=== PATIENT | female | born 1970 | race Two or more races ===

== ENCOUNTER 2023-04-15 21:50 | Inpatient (IN) | payer SELFPAY ==
[~2023-04-15] VITALS: Ht 165.1 cm; Wt 83.8 kg
[2023-04-15 22:17] LABS: Urine Bacteria FEW /hpf (None Seen); Urine Blood 3+ /uL (Negative); Urine Clarity Clear (Clear); Urine Color Yellow (Yellow); Urine Hyaline Cast FEW /lpf (0 - 2); Urine Mucus FEW (None Seen); Urine Protein, UAD 1+ (Negative); Urine WBC 5 /hpf (0 - 5); Urine pH 5.5 (5.0-8.0)
[2023-04-15 23:14] LABS: Basophils # (auto) 0 10 ^3/uL (0-0.2); Basophils % (auto) 0.3 % (0.0-2.0); Eosinophils # (auto) 0 10 ^3/uL (0-0.8); Eosinophils % (auto) 0.1 % (0.0-7.0); Hematocrit 42.8 % (36.0-46.0); Hemoglobin 14.2 g/dL (12.2-16.2); Lymphocytes # (auto) 2.7 10 ^3/uL (0.4-5.4); Lymphocytes % (auto) 18.3 % (10.0-50.0); Mean Corpuscular Hemoglobin 30.4 pg (28.0-32.0); Mean Corpuscular Hgb Conc. 33.3 g/dL (32.0-36.0); Mean Corpuscular Volume 91.3 fL (80.0-100.0); Monocytes # (auto) 0.6 10 ^3/uL (0-1.3); Monocytes % (auto) 4.1 % (0.0-12.0); Neutrophils # (auto) 11.3 10 ^3/uL (1.6-8.6); Neutrophils % (auto) 77.2 % (37.0-80.0); Red Blood Cells 4.68 10^6/uL (4.0-5.20); Red Cell Distribution Width 12.5 % (11.8-14.3); White Blood Cell 14.7 10^3/uL (4.4-10.8)
[2023-04-15 23:32] LABS: Alanine Aminotransferase 13 U/L (7-40); Albumin 4.8 g/dL (3.2-4.8); Alkaline Phosphatase 113 U/L (46-116); Anion Gap 7.1 (5-15); Aspartate Aminotransferase 14 U/L (13-40); BUN/Creatinine Ratio 14.5 (10.0-20.0); Blood Urea Nitrogen 11 mg/dL (9-23); Calcium 9.8 mg/dL (8.7-10.4); Carbon Dioxide 25.9 mmol/L (20-30); Chloride 101 mmol/L (98-107); Glucose 104 mg/dL (74-106); Lipase 44 U/L (12-53); Potassium 4.1 mmol/L (3.5-5.1); Sodium 134 mmol/L (136-145)
[2023-04-15 23:33] LABS: Bilirubin, Total 1.1 mg/dL (0.2-1.0); Total Protein 7.9 g/dL (5.7-8.2)
[2023-04-16] MEDS ORDERED: cefTRIAXone SOD 1,000 MG VL IM ONE (03:45)
[2023-04-16] MEDS ORDERED: LIDOCAINE 1% HCL (LOCAL ANESTH.) INJ 20ML MDV ONE (04:16)
[2023-04-16] MEDS ORDERED: MORPHINE SULFATE 4 MG/ML SYR/VIAL IV ONE (04:45)
[2023-04-16] MEDS ORDERED: SODIUM CHLORIDE 0.9% 1,000 ML IVB ONE (04:45)
[2023-04-16] MEDS ORDERED: ONDANSETRON HCL 4 MG/2 ML VIAL IV ONE (04:45)
[2023-04-16] MEDS ORDERED: PIPERACILLIN-TAZOB 3.375GM 100 ML IV ONE (05:00)
[2023-04-16 06:59] LABS: INR 1.11 (0.9-1.15); Partial Thromboplastin Time 31.8 SEC (24.5-34.5); Prothrombin Time 11.6 sec (9.3-11.8)
[2023-04-16] MEDS ORDERED: SODIUM CHLORIDE 0.9% 1,000 ML IV SCH (07:15)
[2023-04-16] MEDS ORDERED: MORPHINE SULFATE INJ 2 MG/ml SYRG IV PRN ×2 (07:15→10:45)
[2023-04-16] MEDS ORDERED: ONDANSETRON HCL 4 MG/2 ML VIAL IV PRN ×2 (07:15→17:00)
[2023-04-16] MEDS: cefTRIAXone 1GM/50ML D5W 50 ML IV SCH (09:00)
[2023-04-16] MEDS: PANTOPRAZOLE 40 MG/10 ML VIAL INJ IV SCH (10:46)
[2023-04-16] MEDS: SODIUM CHLORIDE 0.9% 1,000 ML IV SCH ×2 (10:46→18:40)
[2023-04-16 10:58] VITALS: PULSE 77; RESP 19; O2SAT 93
[2023-04-16 13:49] VITALS: BP 120/75; PULSE 91; RESP 20; TEMP 98.1; O2SAT 98
[2023-04-16 13:50] VITALS: BP 120/75; PULSE 91; RESP 20; TEMP 98.1; O2SAT 98
[2023-04-16] MEDS: metroNIDAZOLE 500MG/100ML 100 ML IV SCH ×2 (14:11→21:41)
[2023-04-16] MEDS ORDERED: ROCURONIUM 10MG/ML 10ML VIAL IV ONE (15:25)
[2023-04-16] MEDS ORDERED: LIDOCAINE 2% JELLY 11ml (GLYDO) ONE (15:25)
[2023-04-16] MEDS ORDERED: DexAMETHasone SOD PHOS 10MG/1ML VIAL INJ ONE (15:29)
[2023-04-16] MEDS ORDERED: PROPOFOL 10 MG/ML 20 ML IV ONE (15:29)
[2023-04-16] MEDS ORDERED: GLYCOPYRROLATE 0.2 MG/ML 1ML VIAL ONE (15:29)
[2023-04-16] MEDS ORDERED: ONDANSETRON HCL 4 MG/2 ML VIAL ONE (15:29)
[2023-04-16] MEDS ORDERED: KETOROLAC TROMETH 30 MG/ML 1ML VIAL ONE (15:29)
[2023-04-16] MEDS ORDERED: CELECOXIB 100 MG CAP PO ONE (15:30)
[2023-04-16] MEDS ORDERED: ACETAMINOPHEN IV 1000 MG/100ML (10MG/ML) IV ONE (15:30)
[2023-04-16] MEDS ORDERED: GABAPENTIN 400 MG CAP PO ONE (15:30)
[2023-04-16] MEDS ORDERED: fentaNYL CITRATE 100 MCG/2 ML VL ONE (15:33)
[2023-04-16] MEDS ORDERED: SUGAMMADEX 200mg/2ml Vial (100MG/ML) IV ONE (15:33)
[2023-04-16] MEDS ORDERED: LIDOCAINE W/ EPINEPHRINE 1% 20ML VIAL ONE (15:37)
[2023-04-16] MEDS ORDERED: BUPIVACAINE 0.25% INJ 50ML VIAL ONE (15:38)
[2023-04-16] MEDS ORDERED: CELECOXIB 100 MG CAP ONE (15:47)
[2023-04-16] MEDS ORDERED: ACETAMINOPHEN IV 100 ML IV ONE (15:47)
[2023-04-16] MEDS ORDERED: GABAPENTIN 400 MG CAP ONE (15:47)
[2023-04-16 16:53] VITALS: O2SAT 97
[2023-04-16] MEDS ORDERED: fentaNYL CITRATE 100 MCG/2 ML VL IV PRN (17:00)
[2023-04-16] MEDS ORDERED: hydrALAZINE HCL 20 MG/ML VL IV PRN (17:00)
[2023-04-16] MEDS ORDERED: FLUMAZENIL 0.1 MG/ML INJ 10ML MDV IV PRN (17:00)
[2023-04-16] MEDS ORDERED: ePHEDrine SULFATE 50 MG/ML AMP IV PRN (17:00)
[2023-04-16] MEDS ORDERED: HYDROmorphone HCL 2 MG/ML VL/or syr IV PRN (17:00)
[2023-04-16] MEDS ORDERED: NALOXONE HCL 0.4 MG/ML VIAL IV PRN (17:00)
[2023-04-16] MEDS ORDERED: LABETALOL HCL 5 MG/ML 4ML SYRINGE IV PRN (17:00)
[2023-04-16] MEDS: oxyCODONE HCL 5MG TAB PO PRN ×2 (17:28→21:41)
[2023-04-16 20:00] VITALS: PULSE 75; RESP 18; O2SAT 95
[2023-04-16 22:00] VITALS: BP 102/59; PULSE 80; RESP 16; TEMP 98.9; O2SAT 92
[2023-04-17] MEDS: SODIUM CHLORIDE 0.9% 1,000 ML IV SCH ×2 (04:52→10:36)
[2023-04-17 05:00] VITALS: BP 105/56; PULSE 74; RESP 18; TEMP 98.1; O2SAT 95
[2023-04-17] MEDS: metroNIDAZOLE 500MG/100ML 100 ML IV SCH (06:28)
[2023-04-17 07:02] LABS: Basophils # (auto) 0 10 ^3/uL (0-0.2); Basophils % (auto) 0.1 % (0.0-2.0); Eosinophils # (auto) 0 10 ^3/uL (0-0.8); Hematocrit 28.1 % (36.0-46.0); Hemoglobin 9.7 g/dL (12.2-16.2); Lymphocytes # (auto) 0.5 10 ^3/uL (0.4-5.4); Lymphocytes % (auto) 6.3 % (10.0-50.0); Mean Corpuscular Hgb Conc. 34.4 g/dL (32.0-36.0); Mean Corpuscular Volume 90.1 fL (80.0-100.0); Monocytes # (auto) 0.4 10 ^3/uL (0-1.3); Neutrophils # (auto) 7.2 10 ^3/uL (1.6-8.6); Neutrophils % (auto) 88.6 % (37.0-80.0); Red Blood Cells 3.12 10^6/uL (4.0-5.20); Red Cell Distribution Width 12.3 % (11.8-14.3); White Blood Cell 8.1 10^3/uL (4.4-10.8)
[2023-04-17 07:12] LABS: Albumin 3.5 g/dL (3.2-4.8); Alkaline Phosphatase 71 U/L (46-116); Anion Gap 9.1 (5-15); BUN/Creatinine Ratio 32.8 (10.0-20.0); Blood Urea Nitrogen 22 mg/dL (9-23); Calcium 8.4 mg/dL (8.5-10.1); Carbon Dioxide 22.9 mmol/L (20-30); Chloride 106 mmol/L (98-107); Glucose 164 mg/dL (74-106); Potassium 4.5 mmol/L (3.5-5.1); Sodium 138 mmol/L (136-145)
[2023-04-17 07:13] LABS: Bilirubin, Total 0.5 mg/dL (0.2-1.0); Total Protein 5.7 g/dL (5.7-8.2)
[2023-04-17 07:20] LABS: Alanine Aminotransferase 9 U/L (7-40); Aspartate Aminotransferase < 8 U/L (13-40)
[2023-04-17 08:00] VITALS: BP 91/45; PULSE 68; RESP 15; TEMP 98.4; O2SAT 96
[2023-04-17 09:38] VITALS: BP 91/45; PULSE 68; RESP 15; TEMP 98.4; O2SAT 96
[2023-04-17] MEDS: PANTOPRAZOLE 40 MG/10 ML VIAL INJ IV SCH (10:36)
[2023-04-17] MEDS: cefTRIAXone 1GM/50ML D5W 50 ML IV SCH (10:36)
[2023-04-17] MEDS ORDERED: MET500T PO (11:01)
[2023-04-17] MEDS ORDERED: LEVO750T8 PO (11:01)
== END 2023-04-17 11:39 | disposition left against medical advice (07) | DRG 854 ==
LOC: ER 21:52 → OVERFLOW 04-16 07:03 → WEST WING 04-16 13:20
PROVIDERS: ADMIT Nurse Practitioner; ATTEND Nurse Practitioner Acute Care
PROC: 0DTJ4ZZ Resection of Appendix, Percutaneous Endoscopic Approach (ICD-10-PCS; principal; 2023-04-16 16:08)
DX: A41.9 Sepsis, unspecified organism (principal); K35.80 Unspecified acute appendicitis; E66.9 Obesity, unspecified; N30.90 Cystitis, unspecified without hematuria; Z68.30 Body mass index [BMI] 30.0-30.9, adult; Z83.3 Family history of diabetes mellitus; Z82.49 Family history of ischemic heart disease and other diseases of the circulatory system
CPT/HCPCS: 36415; 71045; 74176; 80053; 81001; 83690; 85025; 85610; 85730; 86850; 86900; 86901; 87081; 93005; 96361; 96365; 96372; C9113; G0378; J0131; J0696; J1100; J1885; J2001; J2405; J2543; J2704; J3490